=== PATIENT | female | born 2000 | race Hispanic/Latino ===

== ENCOUNTER 2021-03-20 13:52 | Emergency (ER) | payer OTHER ==
[~2021-03-20] VITALS: Ht 162.6 cm; Wt 56.7 kg
[2021-03-20 14:56] LABS: COLOR,URINE YELLOW (YELLOW)
[2021-03-20 14:57] LABS: CLARITY,URINE SL CLOUDY (CLEAR); KETONES,URINE NEGATIVE (NEGATIVE); LEUKOCYTE ESTERASE ,URINE NEGATIVE (NEGATIVE); NITRITE,URINE NEGATIVE (NEGATIVE); PROTEIN,URINE DIPSTICK NEGATIVE (NEGATIVE); URINE UROBILINOGEN 0.2 mg/dL (0.2 - 1)
[2021-03-20 15:09] LABS: AMORPHOUS SEDIMENT,URINE MODERATE (FEW); BACTERIA,URINE RARE /HPF; EPITHELIAL CELLS,URINE MANY /LPF; RBC,URINE 0-5 /HPF (0-5); WBC,URINE (MAN) 0-5 /HPF (0-5)
== END 2021-03-20 15:38 | disposition home or self-care (01) ==
LOC: ER 14:09
DX: O26.91 Pregnancy related conditions, unspecified, first trimester (principal); R10.13 Epigastric pain
CPT/HCPCS: 81001; 81025; 87086; 87186; 99283

== ENCOUNTER 2021-12-12 12:55 | Emergency (ER) | payer OTHER ==
[~2021-12-12] VITALS: Ht 162.6 cm; Wt 56.7 kg
[2021-12-12] MEDS ORDERED: LACTATED RINGER'S 1,000 ML INJ STA (13:02)
[2021-12-12 13:14] LABS: BASOPHILS % 0.4 % (0.0-1.0); EOSINOPHILS # (AUTO) 0.1 (0.0-0.4); EOSINOPHILS % 1.8 % (0.0-6.0); HEMATOCRIT 41.1 % (34.2-44.1); HEMOGLOBIN 13.5 g/dL (12.0-16.0); LYMPHOCYTES # (AUTO) 1.7 (1.0-3.2); LYMPHOCYTES % 23.1 % (18.0-39.1); MEAN CORPUSCULAR HEMOGLOBIN 27.3 pg (28-32); MEAN CORPUSCULAR HGB CONC 32.8 g/dL (31-35); MONOCYTES # (AUTO) 0.4 (0.2-0.8); NEUTROPHILS % 68.4 % (38.7-80.0); PLATELET COUNT 243 x10e3/uL (140-360); RED BLOOD COUNT 4.95 x10e6/uL (3.6-5.1); RED CELL DISTRIBUTION WIDTH 15.4 % (11.7-14.4)
[2021-12-12] MEDS ORDERED: FAMOTIDINE 20 MG/2 ML VIAL IV NR (13:15)
[2021-12-12 13:16] LABS: CLARITY,URINE CLOUDY (CLEAR); COLOR,URINE YELLOW (YELLOW); KETONES,URINE NEGATIVE (NEGATIVE); LEUKOCYTE ESTERASE ,URINE LARGE (NEGATIVE); NITRITE,URINE POSITIVE (NEGATIVE); PROTEIN,URINE DIPSTICK 2+ (NEGATIVE); URINE UROBILINOGEN 0.2 mg/dL (0.2 - 1)
[2021-12-12 13:19] LABS: BACTERIA,URINE MANY /HPF; EPITHELIAL CELLS,URINE FEW /LPF; WBC,URINE (MAN) >50 /HPF (0-5)
[2021-12-12] MEDS ORDERED: DONNATAL/LIDOCAINE/MAALOX 30 ML SUSP PO ONE (13:30)
[2021-12-12 13:32] LABS: ALBUMIN 3.8 g/dL (3.5-5.0); ALBUMIN/GLOBULIN RATIO 1.3 (0.8-2.0); ANION GAP 8.9 mmol/L (8-16); CALCIUM 8.7 mg/dL (8.4-10.2); CREATININE, SERUM 0.85 mg/dL (0.57-1.11); POTASSIUM 3.9 mmol/L (3.5-5.1)
[2021-12-12] MEDS ORDERED: CEPHALEXIN 500 MG CAP PO NR (14:00)
[2021-12-12] MEDS ORDERED: PEPCID20 MG PO (14:02)
[2021-12-12] MEDS ORDERED: CEPHALEXIN500 MG PO (14:02)
== END 2021-12-12 14:20 | disposition home or self-care (01) ==
LOC: ER 12:57
DX: R10.13 Epigastric pain (principal); N39.0 Urinary tract infection, site not specified
CPT/HCPCS: 36415; 80053; 81001; 81025; 83690; 84484; 85025; 93005; 99283; J7121

== ENCOUNTER 2021-12-24 12:48 | Emergency (ER) | payer OTHER ==
[~2021-12-24] VITALS: Ht 162.6 cm; Wt 56.7 kg
[~2021-12-24 12:48] MED LIST: CEPHALEXIN500 MG PO; PEPCID20 MG PO
[2021-12-24] MEDS ORDERED: AZITHROMYCIN 250 MG TAB PO ONE (13:15)
[2021-12-24] MEDS ORDERED: CEFTRIAXONE 1 GM VIAL IM ONE (13:15)
[2021-12-24] MEDS ORDERED: ONDANSETRON HCL 4 MG ORAL DISINTEGRATING TAB PO ONE (13:15)
[2021-12-24 13:38] LABS: CLARITY,URINE SL CLOUDY (CLEAR); COLOR,URINE YELLOW (YELLOW); LEUKOCYTE ESTERASE ,URINE NEGATIVE (NEGATIVE); NITRITE,URINE NEGATIVE (NEGATIVE)
[2021-12-24 13:39] LABS: BACTERIA,URINE FEW /HPF; EPITHELIAL CELLS,URINE RARE /LPF; KETONES,URINE >=160 (NEGATIVE); PROTEIN,URINE DIPSTICK 1+ (NEGATIVE); RBC,URINE 0-5 /HPF (0-5); URINE UROBILINOGEN 0.2 mg/dL (0.2 - 1)
[2021-12-24 14:08] VITALS: BP 110/65
== END 2021-12-24 14:21 | disposition home or self-care (01) ==
LOC: ER 12:54
DX: R30.0 Dysuria (principal); N30.90 Cystitis, unspecified without hematuria; A64 Unspecified sexually transmitted disease
CPT/HCPCS: 81001; 81025; 87491; 87591; 99283; J0696; Q0162

== ENCOUNTER 2022-01-19 17:04 | Emergency (ER) | payer OTHER ==
[~2022-01-19] VITALS: Ht 162.6 cm; Wt 56.7 kg
[2022-01-19 18:22] LABS: CLARITY,URINE CLOUDY (CLEAR); COLOR,URINE YELLOW (YELLOW); KETONES,URINE NEGATIVE (NEGATIVE); LEUKOCYTE ESTERASE ,URINE LARGE (NEGATIVE); NITRITE,URINE NEGATIVE (NEGATIVE); PROTEIN,URINE DIPSTICK TRACE (NEGATIVE); URINE UROBILINOGEN 0.2 mg/dL (0.2 - 1)
[2022-01-19 18:34] LABS: BACTERIA,URINE MANY /HPF; EPITHELIAL CELLS,URINE FEW /LPF; WBC,URINE (MAN) 21-50 /HPF (0-5)
[2022-01-19] MEDS ORDERED: CIPRO500 MG PO (18:44)
== END 2022-01-19 18:45 | disposition home or self-care (01) ==
LOC: ER 17:42
DX: R30.0 Dysuria (principal); N39.0 Urinary tract infection, site not specified
CPT/HCPCS: 81001; 81025; 99282

== ENCOUNTER 2022-08-04 04:44 | Emergency (ER) | payer OTHER ==
[~2022-08-04] VITALS: Ht 162.6 cm; Wt 56.7 kg
[~2022-08-04 04:44] MED LIST changes: +CIPRO500 MG PO
[2022-08-04] MEDS ORDERED: LIDOCAINE VISC 2% SOLN 15 ML UDC TP ONE (05:45)
[2022-08-04] MEDS ORDERED: KETOROLAC TROMETHAMINE 60 MG/2 ML VIAL IM ONE (05:45)
[2022-08-04] MEDS ORDERED: NEOMYCIN-POLYMY10 M1 LEFT EAR (05:50)
== END 2022-08-04 06:00 | disposition home or self-care (01) ==
LOC: ER 05:35
DX: H60.92 Unspecified otitis externa, left ear (principal)
CPT/HCPCS: 99282; J1885

== ENCOUNTER 2022-08-08 12:57 | Emergency (ER) | payer OTHER ==
[~2022-08-08] VITALS: Ht 157.5 cm; Wt 52.2 kg
[~2022-08-08 12:57] MED LIST changes: +NEOMYCIN-POLYMY10 M1 LEFT EAR
[2022-08-08 13:45] LABS: CLARITY,URINE CLOUDY (CLEAR); COLOR,URINE YELLOW (YELLOW); KETONES,URINE >=160 (NEGATIVE); LEUKOCYTE ESTERASE ,URINE TRACE (NEGATIVE); NITRITE,URINE POSITIVE (NEGATIVE); PROTEIN,URINE DIPSTICK 1+ (NEGATIVE); URINE UROBILINOGEN 0.2 mg/dL (0.2 - 1)
[2022-08-08 14:12] LABS: BACTERIA,URINE MANY /HPF; EPITHELIAL CELLS,URINE FEW /LPF; RBC,URINE 0-5 /HPF (0-5); WBC,URINE (MAN) >50 /HPF (0-5)
[2022-08-08] MEDS ORDERED: DOXYCYCLINE HY100 M3 PO (14:16)
[2022-08-08] MEDS ORDERED: CIPRO500 MG PO (14:16)
[2022-08-08 14:21] VITALS: BP 103/80
[2022-08-09] MEDS ORDERED: VALTREX1000 MG PO (13:52)
== END 2022-08-08 14:25 | disposition home or self-care (01) ==
LOC: ER 13:04
DX: H92.12 Otorrhea, left ear (principal); Z20.2 Contact with and (suspected) exposure to infections with a predominantly sexual mode of transmission
CPT/HCPCS: 81001; 81025; 99283

== ENCOUNTER 2022-08-09 13:24 | Emergency (ER) | payer OTHER ==
[~2022-08-09] VITALS: Ht 157.5 cm; Wt 52.2 kg
[~2022-08-09 13:24] MED LIST changes: +DOXYCYCLINE HY100 M3 PO
[2022-08-09] MEDS ORDERED: VALTREX1000 MG PO (13:52)
[2022-08-09] MEDS ORDERED: LIDOCAINE VISC 2% SOLN 15 ML UDC TOP ONE (14:00)
[2022-08-09] MEDS ORDERED: CEFTRIAXONE 500 MG VIAL IM ONE (14:15)
[2022-08-09] MEDS ORDERED: LIDOCAINE HCL 1% LOCAL INJ 20 ML VIAL INJ ONE (14:15)
[2022-08-09 14:28] VITALS: BP 117/75
== END 2022-08-09 14:35 | disposition home or self-care (01) ==
LOC: ER 13:27
DX: B00.1 Herpesviral vesicular dermatitis (principal)
CPT/HCPCS: 86592; 96372; 99284; J0696; J2001